=== PATIENT | female | born 1985 | race Hispanic/Latino ===

== ENCOUNTER 2021-06-06 19:14 | Emergency (ER) | payer OTHER ==
[~2021-06-06] VITALS: Ht 165.1 cm; Wt 95.3 kg
[2021-06-06 19:44] LABS: APPEARANCE,URINE Clear (CLEAR); BILIRUBIN,URINE Negative (NEGATIVE); COLOR,URINE Yellow (YELLOW); GLUCOSE, URINE (UA) Negative (NEGATIVE); KETONES,URINE Negative (NEGATIVE); LEUKOCYTE ESTERASE ,URINE Trace (NEGATIVE); NITRATE,URINE Negative (NEGATIVE); OCCULT BLOOD,URINE Negative (NEGATIVE); PH,URINE 6.5 (5.0-8.0); PROTEIN,URINE POS 2+ mg/dL (NEGATIVE); UROBILINOGEN,URINE 0.2 mg/dL (0.2-1.0)
[2021-06-06] MEDS ORDERED: ORPHENADRINE CITRATE 30 MG/ML ML IM ONE (20:00)
[2021-06-06] MEDS ORDERED: KETOROLAC 60 MG VIAL (30MG/ML) IM ONE (20:00)
[2021-06-06 20:03] LABS: BACTERIA,URINE Few /HPF (None Seen); MUCUS,URINE Few LPF (None Seen); SQUAMOUS EPITHELIAL CELL,UR Moderate /HPF (0-2)
[2021-06-06] MEDS ORDERED: CYCL-309 PO (22:13)
[2021-06-06] MEDS ORDERED: MELO7.5T12 PO (22:13)
[2021-06-06] MEDS ORDERED: LIDOP TP (22:13)
[2021-06-06 22:25] VITALS: BP 119/68
== END 2021-06-06 22:30 | disposition home or self-care (01) ==
LOC: EDH 19:14
DX: S83.91XA Sprain of unspecified site of right knee, initial encounter (principal); S93.401A Sprain of unspecified ligament of right ankle, initial encounter; S39.012A Strain of muscle, fascia and tendon of lower back, initial encounter; S20.229A Contusion of unspecified back wall of thorax, initial encounter; Z79.899 Other long term (current) drug therapy; Z98.890 Other specified postprocedural states; W01.0XXA Fall on same level from slipping, tripping and stumbling without subsequent striking against object, initial encounter; Y93.E9 Activity, other interior property and clothing maintenance; Y92.89 Other specified places as the place of occurrence of the external cause; Y99.8 Other external cause status
CPT/HCPCS: 72100; 73562; 73610; 81001; 81025; 96372 ×2; 99284; J1885; J2360

== ENCOUNTER 2021-08-01 21:14 | Emergency (ER) | payer SELFPAY ==
[~2021-08-01] VITALS: Ht 160 cm; Wt 90.7 kg
[~2021-08-01 21:14] MED LIST: CYCL-309 PO; LIDOP TP; MELO7.5T12 PO
[2021-08-01 21:22] VITALS: BP 104/68
[2021-08-01] MEDS ORDERED: DEXA6TAB7 PO (21:41)
[2021-08-01] MEDS ORDERED: DEXAMETHASONE 4 MG TAB PO SCH (22:00)
== END 2021-08-01 22:06 | disposition home or self-care (01) ==
LOC: EDH 21:14
DX: G56.02 Carpal tunnel syndrome, left upper limb (principal); Z79.899 Other long term (current) drug therapy; Z98.890 Other specified postprocedural states
CPT/HCPCS: 29125; 99283; J8540